=== PATIENT | male | born 1935 | race Caucasian/White ===

== ENCOUNTER 2022-04-29 21:05 | Emergency (ER) | payer OTHER ==
[~2022-04-29] VITALS: Ht 172.7 cm; Wt 61.2 kg
[~2022-04-29 21:05] MED LIST: ASPI-1393 PO; ATEN50TA PO; SIMV40TA2 PO
[2022-04-29 21:20] VITALS: BP_SYST 139
--- NOTE | 2022-04-29 22:17 | NUR ---
RECEIVED PT FROM WAITING AREA ACCOMPANIED BY HIS DAUGHTER C/O RT WRIST PAIN AND SWELLING, POSSIBLE ALLERGIC REACTION FROM ABX AND GEN PSORIASIS. PE DAUGHTER AT BEDSIDE PT WAS RECENTLY C/O NERVE PAIN TO HIS RT HAND FOR COUPLE OF DAYS NOW UNTIL SGHE STATED THAT HE HAS TINGLING SENSATION AND INTERMMITTENT NUMBNESS TO FINGERS D/T PAIN. PER PATIENT PAIN NOW IS 10/10 UNABLE TO DO ADL'S D/T PAIN.NOTED FLAKY AND SOME BLISTER ALL OVER HIS BODY. NOTED MILD REDNESS AND SWELLING TO LT LOWER EXTREMITIES. PMH: PSORIASIS,ARTHRITIS, PACEMAKER, BY PASS SURGERY 10 YRS AGO. PRESENTED HERE AAO, NON SOB NOTED AND NOT IN ACUTE DISTRESS. PT GOWNED AND PLACED ON CARDIAC MONITORS. SEEN AND EXAMINE BY DR. HERNDON.
[2022-04-29] MEDS ORDERED: KETOROLAC TROMETHAMINE 30 MG VIAL IM ONE (22:30)
--- NOTE | 2022-04-29 23:10 | NUR ---
DR. HERNDON AT BEDSIDE FOR RE EVAL.
[2022-04-29 23:12] VITALS: BP_SYST 123
[2022-04-29] MEDS ORDERED: NAPR-1172 PO (23:16)
--- NOTE | 2022-04-29 23:23 | NUR ---
DC PTIENT HOME AAOX4, NO SOB NOTED AND NOT IN ANY DISTRESS. DC INSTRUCTION AND PRESCRIPTION WERE GIVEN TO PATIENT AND TO HIS DAUGHTER. ALSO INSTRUCTED TO F/U WITH HIS PCP. BOTH VERBALIZED UNDERSTANDING. RIGHT WRIST SPLINT APPLIED AND PT TOLERATED WELL.
== END 2022-04-29 23:25 | disposition home or self-care (01) ==
LOC: SED 21:05
DX: M25.531 Pain in right wrist (principal); M79.641 Pain in right hand; R21 Rash and other nonspecific skin eruption; Z79.899 Other long term (current) drug therapy
CPT/HCPCS: 99283; 73130; 96372; J1885